=== PATIENT | female | born 1945 | race Caucasian/White ===

== ENCOUNTER 2016-09-28 18:18 | Inpatient (IN) ==
[2016-09-28] MEDS ORDERED: SODIUM CHLORIDE 0.9% 500 ML IV STA (20:12)
[2016-09-28 20:22] LABS: Basophils % 0.3 % (0.0-0.8); Eosinophils # 0.1 10*3/uL (0.0-0.87); Eosinophils % 1.5 % (0.00-10.9); Hematocrit 38.5 VOL% (35.7-47.0); Hemoglobin 13.1 GM/DL (12.0-16.0); Immature Granulocytes % 0.3 %; Immature Granulocytes Absolute 0.02 #; Lymphocytes # 1.2 10*3/uL (1.4-4.0); Lymphocytes % 17.1 % (21.3-54.2); Mean Corpuscular Hemoglobin 32 PG (27-34); Mean Corpuscular Volume 93.4 FL (87-102); Mean Platelet Volume 12.2 FL (9.6-12.0); Monocytes # 0.5 10*3/uL (0.11-0.8); Monocytes % 7.2 % (1.7-12.7); Neutrophils # 4.9 10*3/uL (1.4-7.4); Neutrophils % 73.6 % (38.7-73.9); Platelet Count 225 T/CUMM (130-400); Red Blood Count 4.12 MC/CUMM (3.8-5.5); Red Cell Distribution Width 13.2 % (9.3-17.3); White Blood Count 6.7 T/CUMM (4-12)
[2016-09-28 20:28] LABS: D-Dimer 0.9 MG/L FEU
[2016-09-28 20:37] LABS: Alanine Aminotransferase 29 U/L (13-56); Albumin 3.8 G/DL (3.4-5.0); Alkaline Phosphatase 67 U/L (45-117); Aspartate Amino Transferase 21 U/L (0-37); Bilirubin,Total < 0.39 MG/DL (0.2-1.0); Blood Urea Nitrogen 19 MG/DL (7-18); Calcium 8.2 MG/DL (8.5-10.1); Glucose 110 MG/DL (74-106); Magnesium 2.2 MG/DL (1.8-2.4); Osmolality,Calculated 279.5 MOS/KG (273-304); Potassium 4.3 MMOL/L (3.5-5.1); Sodium 139 MMOL/L (136-145); Total Protein 7.1 G/DL (6.4-8.3); Troponin I Only < 0.015 NG/ML (0.00-0.045)
--- NOTE | 2016-09-28 20:39 | Emergency Department Note ---
Pepito Amaya Hilary, am scribing for, and in the presence of, Hua Turcios MD 20:10. Karolina Amaya Charles R, MD, personally performed the services described in this documentation, ascribed by Zelda Beyer in my presence, and it is both accurate and complete 039 . Arrival - Arrival Chief Complaint: Neuro Stated Complaint: fell/arm pain ED Nursing Triage Note: Right arm numbness and weakness - pt then had syncopal episode and hit her head and right hand on the floor - pt denies any weakness to lower extrem - pt is awake and alert at time of triage - pt has hematoma to forehead - pt states that her s/s are better than onset Mode of Arrival: Wheelchair Limitations: No Limitations Source: Patient, Family (Friend), RN Notes Reviewed Time Seen by Provider: 09/28/16 19:05 - History of Present Illness HPI Narrative: Pt is a 71 y/o white female presenting to the ED with c/o a syncope episode secondary to 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 Pt reports that she was BBQing in the rain and running back and forth from the BBQ to her house when she got an "electrical current" feeling running through her right hand and then her left, the next thing she knew she was waking up face down on the ground. Pt denies hearing any thunder or lightening around and she denies headache, neck pain, wrist pain, or leg weakness. She states that the electrical pain is still in right hand between her first and fifth fingers and her face hurts from where she fell. Her friend is in the room and states that she has been confused and not remembering the event leading up to her syncope episode. No other complaints or problems stated in the ED. Onset (ago): hour(s) Consistency: constant Severity: moderate Severity scale (1-10): 3 Quality: sharp Date of Last Menstrual Period: yuriy Allergies/Adverse Reactions: Allergies Allergy/AdvReac Type Severity Reaction Status Date / Time latex Allergy RASH Verified 09/28/16 18:34 Home Medications: Home Medications Medication Instructions Recorded Confirmed Type Allopurinol 100 mg PO QAM 09/28/16 09/28/16 History Amlodipine Besylate 10 mg PO QAM 09/28/16 09/28/16 History Metoprolol Succinate Xl [Toprol Xl] 25 mg PO QAM 09/28/16 09/28/16 History Valsartan 160 mg PO QAM 09/28/16 09/28/16 History Review of System - Review of System 12 point system: reviewed and no additional remarkable complaints except as stated - Review of System Constitutional: Absent: fever Cardiovascular: Present: syncope. Absent: chest pain Musculoskeletal: Present: arm pain (right hand pain between first and 5th digits ). Absent: back pain, leg pain, neck pain Neurological: Absent: headache, weakness Medical,Surgical,& Family Hx - Medical History Cardio: History of: Hypertension Rheumatology: History of;: Gout - Social History Smoking Status: Never smoker Frequency of Alcohol Use: None Type of Drug Use: None Exam Vital Signs: Vital Signs Temperature 98.2 F 09/28/16 18:34 Pulse Rate 69 09/28/16 18:57 Respiratory Rate 20 09/28/16 18:57 Blood Pressure 131/74 09/28/16 18:57 O2 Sat by Pulse Oximetry 94 L 09/28/16 18:57 - General General appearance: alert, in no apparent distress - Head Head exam: Present: atraumatic, normocephalic, other (swelling around bridge of her nose) - Eye Eye exam: Present: normal appearance, PERRL, EOMI - ENT ENT exam: Present: mucous membranes moist, TM's normal bilaterally. Absent: mucous membranes dry - Neck Neck exam: Present: full ROM, trachea midline, other (Nexus criteria negative ) . Absent: tenderness - Chest Chest inspection: Present: symmetric chest wall rise. Absent: tenderness - Respiratory Respiratory exam: Present: normal lung sounds bilaterally. Absent: respiratory distress - Cardiovascular Cardiovascular exam: Present: regular rate, normal rhythm, normal heart sounds. Absent: murmur, rubs, gallop - Abdominal Exam Abdominal exam: Present: soft, normal bowel sounds. Absent: distention, tenderness - Extremities Exam Extremities exam: Present: full ROM, tenderness (right hand along her median nerve, positive tinel sign), pedal edema (+1 edema bilaterally) - Back Exam Back exam: Present: full ROM. Absent: tenderness - Neurological Exam Neurological exam: Present: alert, oriented X3, CN II-XII intact. Absent: motor sensory deficit - Psychiatric Psychiatric exam: Present: normal affect, normal mood, other (brief syncopal and LOC) - Skin Skin exam: Present: warm, dry, intact, normal color. Absent: rash Course - Consultations Consultation #1: Dr. Foss will admit patient Time: 22:38 Results - Labs CBC & BMP: 09/28/16 18:58 09/28/16 18:58 Lab Results: I have reviewed the patients labs Labs: Laboratory Tests 09/28/16 18:58 WBC 6.7 RBC 4.12 Hgb 13.1 Hct 38.5 MPV 12.2 H Lymph % (Auto) 17.1 L Lymph # (Auto) 1.2 L Laboratory Tests 09/28/16 09/28/16 18:58 18:58 INR 1.0 PT Patient/Control Mix 10.0 D-Dimer, Quantitative 0.9 Sodium 139 Potassium 4.3 Chloride 106 Carbon Dioxide 22 Anion Gap 15.3 H BUN 19 H BUN/Creatinine Ratio 31.00 H Glucose 110 H Calcium 8.2 L Serum Alcohol 173 Laboratory Tests 09/28/16 18:58 B-Natriuretic Peptide 58 - Diagnostic Findings Procedure: CT: report reviewed by me (Cervical spine: 1. No fracture or dislocation 2. 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 HEAD: 1 No acute hemorrhage, infarction or mass effect 2. Facial bones are described seperately with nasal bone fracture suspected FACE: 1. Bilateral inflammation in hte maxillary sinuses and ethmoid air cells. 2. comminuted nasal bone fracture present bilaterally 3. Slight irregularity of the anterior wall however this could represnt a small buckle fracture of the anterior wall of the maxillary antra bilaterally) Critical Care Time Critical Care Time: Yes Total Critical Care Time: 60 Disposition Clinical Impression: Syncope and collapse, Injury of peripheral nerve of right upper extremity at hand level, Nasal bone fracture, Facial contusion Case discussed with: patient Disposition: Still a Patient Condition: Stable Time of Disposition: 22:39
--- NOTE | 2016-09-28 21:27 | CT Report ---
Exam: CT scan of brain without contrast Date: 09/28/2016 Indication: Syncope fall head injury Comparison: None Patient's classification: Emergency department Technical: Images were obtained from the skull base to the vertex without the use of intravenous contrast. Dose reduction was performed with decreasing kv and mA and automated exposure Total DLP: 1601.1 mGy*cm Findings: The brainstem, cerebellum and cerebral hemispheres are intact. The paranasal sinuses are unremarkable. Calcification of the falx cerebri present. The ventricles are located in normal position without midline shift or mass effect. The globes and sella are intact. The calvarium is unremarkable. Impression: 1. No acute hemorrhage, infarction or mass effect 2. Facial bones are described separately with nasal bone fracture suspected PROCEDURE INTERPRETED AT [facility] DEPARTMENT OF RADIOLOGY Final Report Signed by: Dr. Dionicio Martell
--- NOTE | 2016-09-28 21:30 | CT Report ---
Exam:CT cervical spine wo con Date:09/28/2016 8:12 PM Indication: Status post fall head and neck injury syncope Comparison: None Total DLP: 540.4 mGy*cm Technical: Sagittal axial and coronal imaging was available for review with out the use of intravenous contrast. Dose reduction was performed with decreasing kv and mA and automated exposure Findings: 7 cervical vertebral bodies are demonstrated. The vertebral body heights, lamina, pedicles, and posterior elements are intact. The exam reveals disc space narrowing C4-5 C5-6 and C6-7 and C7-T1 with attempted bridging syndesmophytes and posterior spurring at these levels. The posterior elements are intact. Lateral masses otherwise aligned. The arch at C1 and C2 and odontoid process are intact. The neural foramina canals are slightly narrowed at C4-5 C5-6 and C6-7 and C7-T1. Minimal vascular plaque in the carotid arteries. Impression 1. No fracture or dislocation. 2. Intervertebral discogenic disease and degenerative spondylosis in the mid and lower cervical spine and facet arthropathy with uncovertebral osteophytic spurring. PROCEDURE INTERPRETED AT [facility] DEPARTMENT OF RADIOLOGY Final Report Signed by: Dr. Dionicio Martell
--- NOTE | 2016-09-28 21:31 | XRay Report ---
Exam: XR chest 1V portable Date: 09/28/2016 8:13 PM Indication: Shortness of breath Comparison: 05/05/2011 Technical AP portable Findings: Mild cardiomegaly. External cardiac leads are present. No obvious infiltrate or effusion. Mediastinum is otherwise intact Bony structures are intact. No pneumothorax. Impression: 1. Cardiomegaly without decompensation. PROCEDURE INTERPRETED AT [facility] DEPARTMENT OF RADIOLOGY Final Report Signed by: Dr. Dionicio Martell
--- NOTE | 2016-09-28 21:35 | CT Report ---
Exam: CT facial bones wo con Date: 09/28/2016 8:12 PM Comparison: None Indication: Status post fall facial pain and swelling Total DLP: 1601.1 mGy*cm Technical: axial, sagittal and coronal images were obtained through the maxillofacial sinuses and bones without intravenous contrast. Dose reduction was performed with decreasing kv and mA and automated exposure Findings: The frontal sinuses are unremarkable. The maxillary sinuses are demonstrated with minimal inflammation in the maxillary antra more prominent along the lower aspect of the maxillary sinuses bilaterally. Ethmoid sinuses are demonstrated with inflammation in the ethmoid air cells bilaterally. The sphenoid sinuses are unremarkable. The ostiomeatal complex is intact. The nasal septum is midline without spur. The mastoid sinuses are unremarkable. The facial bones are demonstrated with bilateral nasal bone fractures slightly progressed. The lateral wall the orbits and zygomatic arches are intact. The mandible mandibular condyles and pterygoid processes are intact. The superior stephens of the orbits and medial and floor the orbits are intact. The medial wall of the maxillary sinuses and posterior lateral stephens are intact. Slight irregularity of the anterior wall of the maxillary antra bilaterally. The globes are intact. No intra-extraconal abnormalities are noted. Impression: 1. Bilateral inflammation in the maxillary sinuses and ethmoid air cells. 2. Comminuted nasal bone fracture present bilaterally 3. slight irregularity of the anterior wall however this could represent a small buckle fracture of the anterior wall of the maxillary antra bilaterally PROCEDURE INTERPRETED AT [facility] DEPARTMENT OF RADIOLOGY Final Report Signed by: Dr. Dionicio Martell
[2016-09-28] MEDS ORDERED: IBUPROFEN 800 MG TABLET PO STA (21:44)
[2016-09-28] MEDS ORDERED: IBUPROFEN 800 MG TABLET ONE (21:46)
--- NOTE | 2016-09-28 22:00 | XRay Report ---
Exam: XR hand 2V RT Date: 09/28/2016 9:43 PM Indication: Pain secondary to fall Comparison: None Technical: AP lateral Findings: Distal radius and ulna are intact. Carpal bones reveal degenerative arthritic changes. The metacarpals are intact. IV tubing is present over the dorsum of the fourth and fifth metacarpal. Tiny subchondral cysts are present within the second and third digits Impression: No fracture dislocation with mild degenerative arthritic changes of the wrist and digits. PROCEDURE INTERPRETED AT [facility] DEPARTMENT OF RADIOLOGY Final Report Signed by: Dr. Dionicio Martell
[2016-09-28] MEDS ORDERED: ONDANSETRON 4 MG/2 ML VIAL IV PRN (23:46)
[2016-09-28] MEDS ORDERED: ACETAMINOPHEN 325 MG TABLET PO PRN (23:46)
[2016-09-28] MEDS ORDERED: MORPHINE 2 MG/1 ML SYRINGE IV PRN (23:46)
[2016-09-28] MEDS: cefTRIAXone 1,000 MG in SODIUM CHLORIDE 0.9% 100 ML IV SCH (23:55)
[2016-09-29] MEDS: SODIUM CHLORIDE 0.9% 1,000 ML IV SCH ×4 (03:07→21:00)
[2016-09-29 04:07] LABS: Basophils % 0.4 % (0.0-0.8); Eosinophils # 0.1 10*3/uL (0.0-0.87); Eosinophils % 1.2 % (0.00-10.9); Hematocrit 39.7 VOL% (35.7-47.0); Hemoglobin 13.4 GM/DL (12.0-16.0); Immature Granulocytes % 0.3 %; Immature Granulocytes Absolute 0.02 #; Lymphocytes # 1.3 10*3/uL (1.4-4.0); Lymphocytes % 18.6 % (21.3-54.2); Mean Corpuscular HGB Conc 33.8 GM/DL (32-36); Mean Corpuscular Hemoglobin 32 PG (27-34); Mean Corpuscular Volume 93.2 FL (87-102); Monocytes # 0.5 10*3/uL (0.11-0.8); Monocytes % 7.2 % (1.7-12.7); Neutrophils % 72.3 % (38.7-73.9); Platelet Count 243 T/CUMM (130-400); Red Blood Count 4.26 MC/CUMM (3.8-5.5); Red Cell Distribution Width 13.2 % (9.3-17.3); White Blood Count 6.9 T/CUMM (4-12)
[2016-09-29 04:26] LABS: Alanine Aminotransferase 28 U/L (13-56); Albumin 3.9 G/DL (3.4-5.0); Alkaline Phosphatase 71 U/L (45-117); Aspartate Amino Transferase 21 U/L (0-37); Bilirubin,Total < 0.39 MG/DL (0.2-1.0); Blood Urea Nitrogen 14 MG/DL (7-18); Calcium 8.3 MG/DL (8.5-10.1); Cholesterol 255 MG/DL (50-200); Glucose 103 MG/DL (74-106); HDL Cholesterol 56 MG/DL (40-60); Magnesium 2.1 MG/DL (1.8-2.4); Osmolality,Calculated 279.4 MOS/KG (273-304); Risk Ratio 4.55; Sodium 140 MMOL/L (136-145); Total Protein 7.4 G/DL (6.4-8.3); Triglycerides 233 MG/DL (2-150); VLDL CHOLESTEROL 46.6 MG/DL
--- NOTE | 2016-09-29 04:45 | EKG Report ---
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
--- NOTE | 2016-09-29 07:55 | XRay Report ---
Exam: XR chest 2V Date: 09/29/2016 4:00 AM Indication: Shortness of breath Comparison: Previous chest 09/28/[address] scan 06/08/2016 Technical: PA lateral Findings: Mild prominence the cardiac silhouette with ASVD. External cardiac leads are present. No obvious infiltrate or effusion. Degenerative change present thoracic spine anterolateral marginal osteophytes. Impression: 1. Mild cardiac prominence without decompensation or infiltrates 2. Degenerative spondylosis change thoracic spine 3. 8 mm area of nodularity superimposes the vertebral body the lower thoracic spine posteriorly. This could represent small pulmonary nodule. CT scan of the chest may be beneficial for further evaluation. This most likely represents a pulmonary nodule in the left base. In retrospect on the prior CT scan there is suggestion of a small nodule in the left base image slice #58. Critical test findings Patient discussed with Dr. Abhinav Kincaid PROCEDURE INTERPRETED AT [facility] DEPARTMENT OF RADIOLOGY Final Report Signed by: Dr. Dionicio Martell
--- NOTE | 2016-09-29 09:09 | EKG Report ---
Stationary ECG Study [facility] Test Date: 09/29/2016 9:10:13 AM Pat Name: ERNST OLVERA Department: Room: 268 Gender: F Development Rep: : 1945 Requested by: Hua Mares Order Number: [id number] Reading MD: ROMMEL REAGAN Intervals [place] Rate: 78 P: 67 NV: 174 QRS: 25 QRSD: 81 T: 55 QT: 313 QTc: 346 Interpretive Statements SINUS RHYTHM LOW QRS VOLTAGE IN PRECORDIAL LEADS Electronically Signed On 09-30-16 15:11:52 CDT by ROMMEL REAGAN [id number]
[2016-09-29] MEDS: PANTOPRAZOLE 40 MG VIAL IV SCH (09:15)
--- NOTE | 2016-09-29 09:17 | Internal Med History&Physical ---
Assessment and Plan (1) Syncope and collapse Status: Acute Assessment and plan: 71-year-old female admitted to acute care * Syncopal episode. Etiology unclear. She has history of seizures in remote past. Other differential could be arrhythmia. She was slightly confused after the event according to her friend. Will check MRI of brain, echocardiogram, or monitored, carotid ultrasound and an EEG. Will consult neurology. Will do neuro checks. We will also check orthostatic blood pressure. * History of seizures. Patient had seizures as a teenager and then when she was 27 years old. She has not been on any medications for over 40 years. * Hypertension. Will continue her medications. Will check orthostatic blood pressures * Paresthesias. Will check vitamin B12 and folate level * Fracture of nasal bones. She might have a fracture of maxillary sinus. ENT has been consulted * Discussed with patient Current Visit: Yes (2) Hypertension Status: Acute Current Visit: Yes (3) History of seizures Status: Acute Current Visit: Yes (4) Facial contusion Status: Acute Current Visit: Yes (5) Nasal bone fracture Status: Acute Current Visit: Yes History of Present Illness Chief complaint: Syncopal episode History of present illness: Ms. Kamara is a 71 year old female with history of hypertension, seizure disorder in the past who was brought to the emergency room after a fall last night. Patient had felt some numbness in her right hand previously. She was walking and had a syncopal episode and hit her head and right and on the floor. She suffered fractures to her nasal bones. She denies any weakness or lightheadedness prior to the episode. It was her birthday and she was drinking some alcohol. She had been cooking food and was going in and out of the kitchen. Patient is complaining of pain in her face and nose. She is also complaining of pain in the right wrist. She denies any chest pain or shortness of breath. She denies any palpitations. She still feels numbness in her right hand. Patient apparently was slightly confused after the fall and did not remember events prior to it. She lives with her mother and takes care of her who is 93 years old. She walks on a regular basis. She does not smoke. She drinks alcohol only socially. She is fairly active Home Medications Medication Instructions Recorded Confirmed Type Allopurinol 100 mg PO QAM 09/28/16 09/28/16 History Amlodipine Besylate 10 mg PO QAM 09/28/16 09/28/16 History Metoprolol Succinate Xl [Toprol Xl] 25 mg PO QAM 09/28/16 09/28/16 History Valsartan 160 mg PO QAM 09/28/16 09/28/16 History Allergies Allergy/AdvReac Type Severity Reaction Status Date / Time latex Allergy RASH Verified 09/28/16 18:34 Medical,Surgical,& Family Hx - Medical History Cardio: History of: Hypertension Neurology: History of: Seizures Rheumatology: History of;: Gout Musculoskeletal: No history of: Amputation - Surgical History Thoracic Surgeries: Patient denies;: Lobectomy Neurologic Surgeries: Patient denies: Neurologic Surgery HEENT Surgeries: Patient denies: Tonsilectomy & Adenoidectomy Abdominal Surgeries: Patient denies: Abdominal Surgery - Family History Family History: noncontributory - Social History Smoking Status: Never smoker Frequency of Alcohol Use: Occasionally Type of Drug Use: None Marital Status: Single Lives With:: Alone (Her mother lives with her) Functional capacity: independent ambulation 12 point system: reviewed and no additional remarkable complaints except as stated (As mentioned in HPI) Exam - Constitutional Vitals: Period Temp Pulse Resp BP Sys/Coleman Pulse Ox Last 24 Hr 96.7 F-99.3 F 63-79 18-20 127-158/60-89 94-96 Exam: Examination: GENERAL: NAD. HEENT: PERRLA. EOMI. Mucous membranes are moist. Swelling around the bridge of her nose. Ecchymotic areas around her both eyes NECK: Neck is supple. No JVD. No carotid bruit. No thyromegaly. CVS: Regular rate and rhythm. S1 and S2 are normal. RESPIRATORY: Lungs are clear. No rales or rhonchi. ABDOMEN: Soft and nontender. Bowel sounds are present. No hepatosplenomegaly. EXT: No edema. Peripheral pulses are present. 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 Cranial nerves II through XII are grossly intact. Motor strength is 5 over 5 both upper and lower extremities. Sensory is intact. Deep tendon reflexes are present. SKIN: Warm and dry. MSK: No obvious deformity. She is wearing a brace on her right wrist Results - Labs CBC & BMP: 09/29/16 03:26 09/29/16 03:26 Lab Results: I have reviewed the past 24 hour labs Quality Measures - Stroke Onset of Symptoms Date: 09/28/16 Onset of Symptoms Time: 19:00
[2016-09-29] MEDS: METOPROLOL SUCCINATE XL 25 MG TABLET PO SCH (09:20)
[2016-09-29] MEDS: VALSARTAN 160 MG TABLET PO SCH (09:20)
[2016-09-29] MEDS: amLODIPine 10 MG TABLET PO SCH (09:21)
[2016-09-29] MEDS: ALLOPURINOL 100 MG TABLET PO SCH (09:21)
[2016-09-29] MEDS: DOCUSATE SODIUM 100 MG CAPSULE PO SCH ×2 (09:22→21:12)
[2016-09-29 09:37] LABS: Free T4 (Free Thyroxine) 0.86 NG/DL (0.76-1.46); Thyroid Stimulating Hormone 2.13 uIU/ml (0.358-3.74)
[2016-09-29 09:48] LABS: Folate 6.7 NG/ML (5.4-24.0)
--- NOTE | 2016-09-29 11:52 | Ultrasound Report ---
Exam: Carotid ultrasound Date: 09/29/2016 Comparison: None Technique: Duplex scans of the carotid and vertebral arteries using B-mode/Huber scale imaging and Doppler spectral analysis and color flow. Reason: Syncope Findings: The right ICA measures 5.5 mm in diameter and the left ICA measures 4.4 mm in diameter. Color-flow documented in the visualized arteries. The peak systolic velocities are as follows: Right CCA: 69.0 cm/s Right ICA: 62.5 cm/s Right ECA: 79.4 cm/s Left CCA: 62.5 cm/s Left ICA: 63.8 cm/s Left ECA: 71.6 cm/s The peak systolic ICA/CCA velocity ratios are as follows: 0.9 on the right and 1.0 on the left. Antegrade flow is present in both vertebral arteries. Impression:[0-15% stenosis in both internal carotid arteries with only minimal calcific plaque formation. Antegrade flow in both vertebral arteries.] The Society of Radiologists in Ultrasound consensus conference criteria was used. The Ultrasound images were captured and stored. PROCEDURE INTERPRETED AT [facility] DEPARTMENT OF RADIOLOGY Final Report Signed by: Dr. Ani Carrasco
--- NOTE | 2016-09-29 12:13 | Neurology Consult Note ---
History of Present Illness History of present illness: 71 years old right-handed white lady with past medical history significant for hypertension remote history of seizures admitted to the hospital with the syncopal episode lasted for few seconds to a minute. Episode is not associated with tongue biting or urinary incontinence. She had her birthday yesterday and there was a cookout when she suddenly passed out. There was no warning prior to the event. She also developed some tingling sensation in the right hand as well. She is not hurting in her neck or head. She was diagnosed with having seizures when she was in late 16 early 17 years old. She was treated with Dilantin and she grew out of the seizures until when she was 26 years old when she had another episode. She never took medication after the second episode. She had a detailed workup back then. CT head is unremarkable for any acute pathology Home Medications Medication Instructions Recorded Confirmed Type Allopurinol 100 mg PO QAM 09/28/16 09/28/16 History Amlodipine Besylate 10 mg PO QAM 09/28/16 09/28/16 History Metoprolol Succinate Xl [Toprol Xl] 25 mg PO QAM 09/28/16 09/28/16 History Valsartan 160 mg PO QAM 09/28/16 09/28/16 History Allergies Allergy/AdvReac Type Severity Reaction Status Date / Time latex Allergy RASH Verified 09/28/16 18:34 12 point system: reviewed and no additional remarkable complaints except as stated Medical,Surgical,& Family Hx - Medical History Cardio: History of: Hypertension Neurology: History of: Seizures Rheumatology: History of;: Gout Musculoskeletal: No history of: Amputation - Surgical History Thoracic Surgeries: Patient denies;: Lobectomy Neurologic Surgeries: Patient denies: Neurologic Surgery HEENT Surgeries: Patient denies: Tonsilectomy & Adenoidectomy Abdominal Surgeries: Patient denies: Abdominal Surgery Reproductive Surgeries: Patient denies;: Genitourinary Surgery, Gynecologic Surgery - Social History Smoking Status: Never smoker Frequency of Alcohol Use: Occasionally Type of Drug Use: None Exam - Constitutional Vitals: Period Temp Pulse Resp BP Sys/Coleman Pulse Ox Last 24 Hr 96.7 F-99.3 F 63-79 18-20 127-161/60-89 94-99 Exam: GENERAL: Patient is in no acute distress. NECK: Neck is supple. There is no JVD. No carotid bruits present. No thyroid masses. CVS: First and second heart sounds are normal. There is no S3 present. Regular rate and rhythm. RESPIRATORY: Lungs are clear to auscultation without any rales or rhonchi. ABDOMEN: Soft and non-tender. Bowel sounds are present. There is no hepatosplenomegaly. EXT: There is no palpable edema. Peripheral pulses are present. Skin: No rashes Central Nervous system: General: Alert, awake and Oriented x 3 Speech: Fluent Comprehension: Intact and normal Facial expressions: Normal Cranial Nerves: CN1/Olfactory: Normal CN II/ Optic: Normal, Visual [place] unreliable CN III, and : MIKEY & EOMI CN V: Normal & intact CN VII: face is symmetric CNVIII: Normal CN XI/X/XI/XII: Intact and Normal Motor: Bulk and Tone is normal. Strength in the right 5/5 Strength in the left 5/5 Sensory: Grossly intact for all the modalities of PP, LT and temp sense Reflexes: 1+ and symmetrical Cerebellar function: Normal finger to nose and heel to shreshta testing. Toes: Equivocal Gait: Normal heel to heel and toe to toe and tandem walk. Results - Labs CBC & BMP: 09/29/16 03:26 09/29/16 03:26 Assessment and Plan (1) Syncope and collapse Status: Acute Assessment and plan: I suspect recurrent seizure. Other etiologies would be cardiac arrhythmia, vasovagal phenomena, orthostatic hypotension Current Visit: Yes (2) History of seizures Status: Acute Assessment and plan: Given the previous history of seizures, I believe she needs to be on some antiepileptic drugs. Discussed at length with the patient We will start her on Keppra 500 twice daily No driving, swimming, operating heavy machinery for 6 month EEG can be done as an outpatient Follow-up with me in 2 weeks Current Visit: Yes
--- NOTE | 2016-09-29 13:26 | Magnetic Resonance Report ---
Referring physician: Héctor Walters Exam: MRI brain without contrast Date: September 29, 2016 Comparison: CT brain without contrast September 28, 2016 Reason: Syncope The patient is an inpatient who was admitted on September 29, 2016. Technique: MRI of the brain was performed without the use of contrast. Obtained images include sagittal T1, axial diffusion-weighted, axial FLAIR, axial T2, coronal T2, axial gradient and axial T1 sequences. A 1.5 Viki magnet was used. Findings: There are small scattered areas of T2/FLAIR hyperintensity within the cerebral white matter bilaterally. This is nonspecific but is most consistent with mild chronic microvascular ischemic change. Less common considerations include a demyelinating process, vasculitis, viral process or Lyme disease. No hydrocephalus or midline shift is present. There is no evidence of recent intracranial hemorrhage, abnormal mass effect or an acute infarction. No abnormal extra-axial fluid collection is identified, and major vascular flow voids are visualized. The patient is likely status post cataract surgery. The orbits, brainstem and sella are otherwise unremarkable. There is mucosal thickening within the right frontal sinus, left sphenoid sinus and ethmoid air cells. There is also mucosal thickening within both maxillary sinuses and mild fluid within the left maxillary sinus. There is minimal fluid within the right mastoid air cells. The left mastoid air cells are clear. Impression: 1. No acute intracranial process is identified. 2. Probable mild chronic microvascular ischemic change. 3. Sinus disease as above. PROCEDURE INTERPRETED AT [facility] DEPARTMENT OF RADIOLOGY Final Report Signed by: Dr. Villa Bonds
--- NOTE | 2016-09-29 13:52 | Consultation ---
Assessment and Plan (1) Nasal bone fracture Status: Acute Assessment and plan: minimally displaced nasal bone fractures with slight septal deviation. Advised patient to only gently blow the nose for next several weeks, use OTC saline frequently. Keep head elevated. May use ice pack to face for about 24 hours more, then use warm/hot compresses. If nasal obstruction present in several weeks, call to schedule outpatient visit. Current Visit: Yes Qualifiers: Encounter type: initial encounter Fracture type: closed Qualified Code(s) : S02.2XXA - Fracture of nasal bones, initial encounter for closed fracture History of Present Illness - Data of Consult Consult date: 09/29/16 Requesting Physician: Abhinav Kincaid - Consult Narrative Reason for consult: facial injury History of present illness: Ms. Kamara is a 71 year old female presumed syncopal episode at home yesterday, struck face. Experienced nasal bleeding from right more than left. Is reporting right nasal congestion now. No previous history of nasal injury, surgery. No significant pain in face now. CC: Samir Walters MD - Home Medications and Allergies Home Medications: Home Medications Medication Instructions Recorded Confirmed Type Allopurinol 100 mg PO QAM 09/28/16 09/28/16 History Amlodipine Besylate 10 mg PO QAM 09/28/16 09/28/16 History Metoprolol Succinate Xl [Toprol Xl] 25 mg PO QAM 09/28/16 09/28/16 History Valsartan 160 mg PO QAM 09/28/16 09/28/16 History Allergies/Adverse Reactions: Allergies Allergy/AdvReac Type Severity Reaction Status Date / Time latex Allergy RASH Verified 09/28/16 18:34 Medical,Surgical,& Family Hx - Medical History Cardio: History of: Hypertension Neurology: History of: Seizures Rheumatology: History of;: Gout Musculoskeletal: No history of: Amputation - Surgical History Thoracic Surgeries: Patient denies;: Lobectomy Neurologic Surgeries: Patient denies: Neurologic Surgery HEENT Surgeries: Patient denies: Tonsilectomy & Adenoidectomy Abdominal Surgeries: Patient denies: Abdominal Surgery Reproductive Surgeries: Patient denies;: Genitourinary Surgery, Gynecologic Surgery - Social History Smoking Status: Never smoker Frequency of Alcohol Use: Occasionally Type of Drug Use: None Exam - Constitutional Vitals: Period Temp Pulse Resp BP Sys/Coleman Pulse Ox Last 24 Hr 96.7 F-99.3 F 63-79 18-20 127-161/60-89 94-99 - Head Head exam: Present: contusion (periorbital ecchymosis, c/w with nasal bone fractures) - ENT ENT exam: Present: other (no signigicant nasal deformity externally, septum deviated to right. no active bleeding) Results - Labs CBC & BMP: 09/29/16 03:26 09/29/16 03:26 - Diagnostic Findings Procedure: CT: image reviewed by me (reviewed images, anterior maxillary stephens are intact (artifact of infraorbital nerve foramina). agree with minimally displaced nasal bone fractures) Quality Measures - Stroke Onset of Symptoms Date: 09/28/16 Onset of Symptoms Time: 19:00 Specialty Discharge - Follow Up or Referrals Follow up with: Anurag Schmitt MD [Physician] - 2 Weeks
[2016-09-29] MEDS: KETOROLAC 15 MG/1 ML VIAL IV SCH (17:00)
--- NOTE | 2016-09-29 17:44 | ECHO Report ---
Zayra Kamara 09/29/2016 Exam Date: 10:58 Referring Physician: Calli Stock Technologist: GENIA Age: 71 Ht (in): 66 Wt (lb): 238 FExam Location: [facility] Gender: Echo [id number]: Syncope and collapse, Essential (priIndications:barb) hypertension, Facial contusion, Nasal bone frature, hx Seizures BP: 161 / 77 HR: 66 SinusRhythm: Technical Quality: IMPRESSIONS Technically adequate study 1+ left atrial enlargement Borderline concentric LVH Normal LV systolic function with ejection fraction has been to be 65% without segmental wall motion mildly 1+ aortic stenosis with peak gradient 26 mmHg 1+ aortic regurgitation 1-2+ tricuspid regurgitation with RVSP 53 mmHg plus RAP suggesting at least moderate pulmonary hypertension MEASUREMENTS (Male / Female) Normal Values 2D ECHO LV Diastolic Diameter PLAX 5.3 cm 4.2 - 5.9 / 3.9 - 5.3 cm LV Systolic Diameter PLAX 2.8 cm LV Fractional Shortening PLAX 48.3 % IVS Diastolic Thickness 1.0 cm 0.6 - 1.0 / 0.6 - 0.9 cm LVPW Diastolic Thickness 1.0 cm 0.6 - 1.0 / 0.6 - 0.9 cm RV Internal Dim ED PLAX 3.6 cm Aortic Root Diameter 3.0 cm LA Systolic Diameter LX 4.1 cm 3.0 - 4.0 / 2.7 - 3.8 cm DOPPLER TR Peak Velocity 364.0 cm/s TR Peak Gradient 53.0 mmHg FINDINGS Left Ventricle Normal left ventricular cavity size. Mild left ventricular hypertrophy. Left ventricular ejection fraction is estimated at Right Ventricle The right ventricle is normal in size and function. Right Atrium The right atrium is mildly enlarged. Left Atrium The left atrium is mildly enlarged. Mitral Valve Morphologically normal mitral valve. Trace to mild mitral valve regurgitation. Aortic Valve Aortic valve sclerosis. mean gradient 13 mmHg, MAGAN 1.9 cm. Tricuspid Valve Morphologically normal tricuspid valve. Mild tricuspid valve regurgitation. Trace to mild tricuspid valve regurgitation. Tricuspid regurgitation velocities suggest a PAP of 63 mmHg. Pulmonic Valve Morphologically normal pulmonic valve without significant stenosis. There is no pulmonic regurgitation. Pericardium Normal pericardium without effusion. Aorta Normal ascending aorta dimension. Forrest Isaacs (Electronically Signed) 29 September 2016 Final Date: 17:43
[2016-09-29] MEDS: levETIRAcetam 500 MG TABLET PO SCH (21:11)
[2016-09-30] MEDS: DOCUSATE SODIUM 100 MG CAPSULE PO SCH ×2 (01:18→08:46)
[2016-09-30] MEDS: cefTRIAXone 1,000 MG in SODIUM CHLORIDE 0.9% 100 ML IV SCH (01:19)
[2016-09-30] MEDS: KETOROLAC 15 MG/1 ML VIAL IV SCH (06:03)
[2016-09-30] MEDS: SODIUM CHLORIDE 0.9% 1,000 ML IV SCH (07:00)
[2016-09-30] MEDS: METOPROLOL SUCCINATE XL 25 MG TABLET PO SCH (08:45)
[2016-09-30] MEDS: VALSARTAN 160 MG TABLET PO SCH (08:45)
[2016-09-30] MEDS: PANTOPRAZOLE 40 MG VIAL IV SCH (08:45)
[2016-09-30] MEDS: levETIRAcetam 500 MG TABLET PO SCH (08:45)
[2016-09-30] MEDS: ALLOPURINOL 100 MG TABLET PO SCH (08:46)
[2016-09-30] MEDS: amLODIPine 10 MG TABLET PO SCH (08:46)
[2016-09-30 08:51] VITALS: BP 142/71
--- NOTE | 2016-09-30 09:52 | Discharge Summary ---
Hospital Course - Hospital Course Hospital Course: Patient was admitted to the hospital after a fall and syncopal episode. She woke up on the floor and hit her face fairly hard. She was confused in the event but she did not have any bowel or urine incontinence nor does she bite her tongue. She was seen in consultation with neurology and we did do orthostatic checks on her. She also has a history of hypertension, history of seizures,. She ended up with some facial fractures and periorbital bruising. She ended up having some slight numbness in her right hand but the MRI of her brain and CT of her head was negative for any acute findings. She is now stable she is alert oriented answering all questions not having any significant motor or sensory deficits at this time. We did do EEG on her which is pending. No fever chills nausea vomiting or diarrhea at this time and she does want to go home so we will discharge her home with close follow-up with her primary doctor , Dr. Samir Walters and with neurology as needed Specialty Discharge - Follow Up or Referrals Follow up with: Anurag Schmitt MD [Physician] - 2 Weeks Sushant Foss MD [Physician] - 2 Weeks Discharge Plan - Discharge Data Disposition: Disch To Home/Self Care Condition at Discharge: Stable Discharge Diet: advance to your usual diet Activity: resume usual activities as tolerated Weight Bearing at Discharge: full weight bearing Driving: no restrictions Contact your physician if you experience:: fever over 101, Redness or swelling, Nausea/Vomiting, Shortness of breath, Bleeding - Discharge Medications New HYDROcodone/ACETAMIN 7.5-325 [[place] 7.5-325] 1 tablet PO Q6H PRN #15 tablet PRN Reason: Pain Moderate (4-7) levETIRAcetam TAB [Keppra Tab] 500 mg PO BID #60 tablet Continue Valsartan 160 mg PO QAM Metoprolol Succinate Xl [Toprol Xl] 25 mg PO QAM Allopurinol 100 mg PO QAM Amlodipine Besylate 10 mg PO QAM - Follow Up or Referral Follow Up: Anurag Schmitt MD [Physician] - 2 Weeks Sushant Foss MD [Physician] - 2 Weeks - Forms/Instructions Instructions: Nasal Fracture (DC), Syncope (DC), Epilepsy (DC), Non-epileptic Seizures (DC), Dizziness (GEN), Women and Epilepsy (DC) Exam - Constitutional Vitals: Period Temp Pulse Resp BP Sys/Coleman Pulse Ox Last 24 Hr 97.6 F-98.5 F 60-88 18-20 137-161/65-78 96-99 Discharge Results Labs on day of discharge: Labs from last 24 hours 09/29/16 03:23 Vitamin B12 215 Folate 6.7 DS: Provider Date of admission: 09/28/16 22:40 Primary care physician: . No PCP Attending physician on admission: Samir Walters MD Consults: 09/28/16 23:46 Consult to Case Mgmt/Social Srvs [CONS] Routine Reason for Case Mgmt/Social Srvs: Discharge Planning Consult to Physician [CONS] Routine Comment: Facial contusion facial bone fractures Consulting Provider: Yoandy Duarte When should Consulting Provider be notified: In am 09/29/16 09:08 Consult to Physician [CONS] Routine Comment: syncope Consulting Provider: Anurag Schmitt Discharging clinician: Abhinav Kincaid DO
--- NOTE | 2016-10-03 20:17 | Electroencephalogram ---
DATE OF STUDY: 09/29/16 HISTORY: A 71-year-old patient with a history of syncope. INTRODUCTION: A digital EEG was performed using the standard 10/20 system of electrode placement wit h one channel of EKG monitoring. Photic stimulation and hypoventilation are performed. DESCRIPTION OF RECORD: The background is well organized and consists of 9 to 10 Hz low amplitude josie aterally symmetrical alpha rhythm predominant in the posterior head region attenuates with eye openin g. Photic stimulation elicits a driving response at slower flash frequencies. Hyperventilation prod uced no abnormalities. Drowsiness and sleeping is not achieved. There are no focal, sharp wave, spi ke or wave activity seen. Heart rate is 60 beats per minute. IMPRESSION: NORMAL ELECTROENCEPHALOGRAM DURING WAKEFULNESS. CLINICAL CORRELATION: No focal nor epileptiform features are seen. Normal electroencephalogram does not rule out the diagnostic possibility of epilepsy. Clinical correlation is suggested.
== END 2016-09-30 11:00 | disposition home or self-care (01) | DRG 101 ==
LOC: N.ED 18:18 → N.EDINP 22:40 → N.TELES 23:03
PROVIDERS: ADMIT Family Medicine; ATTEND Family Medicine